=== PATIENT | male | born 1945 | race American Indian/Alaskan Native ===

== ENCOUNTER 2024-08-05 10:10 | Emergency (ER) | payer OTHER ==
[~2024-08-05] VITALS: Ht 175.3 cm; Wt 68.0 kg
[2024-08-05] MEDS ORDERED: AMLODIPINE-OLM1 EAC2 PO (10:20)
[2024-08-05] MEDS ORDERED: ALDACTONE25 MG PO (10:20)
[2024-08-05] MEDS ORDERED: FLUOXETINE DR90 MG PO (10:20)
[2024-08-05] MEDS ORDERED: CLONAZEPAM0.5 MG PO (10:21)
[2024-08-05] MEDS ORDERED: ACID REDUCER20 M1 PO (10:21)
[2024-08-05] MEDS ORDERED: ATORVASTATIN CA20 MG PO (10:21)
[2024-08-05] MEDS ORDERED: CHLORDIAZEPOXIDE HCL 25 MG CAPSULE PO ONE (10:30)
[2024-08-05] MEDS ORDERED: THIAMINE HCL 100 MG/ML 2 ML VIAL IM ONE (10:30)
[2024-08-05] MEDS ORDERED: THIAMINE HCL 100 MG/ML 2 ML VIAL ONE ×2 (10:39→10:43)
[2024-08-05 11:52] LABS: EOS # 0.03 (0.04-0.54); EOS % 0.3 % (0.7-7.0); HEMATOCRIT 40.3 % (40.1-51.0); HEMOGLOBIN 13.9 g/dL (13.7-17.5); LYMPH # 0.66 (1.18-3.74); LYMPH % 6.8 % (19.3-53.1); MEAN CORPUSCULAR HEMOGLOBIN 32.7 pg (25.6-32.2); MONO # 0.88 (0.24-0.82); NEUT # 8.04 (1.56-6.13); NEUT % 82.6 % (34.0-71.1); PLATELET COUNT 408 K/uL (163-369); RED BLOOD COUNT 4.25 M/uL (4.63-6.08); RED CELL DISTRIBUTION WIDTH 14.5 % (11.6-14.4)
[2024-08-05] MEDS ORDERED: 0.9 % SODIUM CHLORIDE 1,000 ML IV SCH (12:00)
[2024-08-05 12:16] LABS: ALT/SGPT 27 U/L (12-78); AMYLASE 36 U/L (25-115); AST/SGOT 35 U/L (15-37); CALCIUM 9.3 mg/dL (8.5-10.1); CREATININE SERUM 0.66 mg/dL (0.70-1.30); GFR 115.84; LIPASE 46 U/L (13-75); POTASSIUM 4.43 mEq/L (3.5-5.1)
[2024-08-05 12:52] LABS: URINE APPEARANCE Clear; URINE BILIRRUBIN Small (NEGATIVE); URINE BLOOD Large; URINE COLOR Dark Yellow; URINE GLUCOSE Negative (NEGATIVE); URINE LEUKOCYTE Trace; URINE NITRATE Negative; URINE PROTEIN 30 (NEGATIVE)
[2024-08-05 12:55] LABS: URINE WBC 11.2 uL (0.0-23.2)
[2024-08-05 13:11] LABS: COCAINE NEGATIVE (NEGATIVE); METHADONE NEGATIVE (NEGATIVE); OPIATES NEGATIVE (NEGATIVE); THC ( Cannabinoids) NEGATIVE (NEGATIVE)
[2024-08-05 13:16] LABS: URINE CAST 0.88 uL (0.0-1.40); URINE KETONE 80 (NEGATIVE)
== END 2024-08-05 18:20 | disposition home or self-care (01) ==
LOC: ER 10:10
PROVIDERS: Emergency Medicine
DX: F10.229 Alcohol dependence with intoxication, unspecified (principal); Z88.0 Allergy status to penicillin; Z88.2 Allergy status to sulfonamides; E78.00 Pure hypercholesterolemia, unspecified; I10 Essential (primary) hypertension
CPT/HCPCS: 36415; 96365; 96366; 96372; 99282; J3490; J7030